=== PATIENT | male | born 1990 | race Caucasian/White ===

== ENCOUNTER 2025-02-21 17:51 | Emergency (ER) | payer OTHER ==
[~2025-02-21] VITALS: Ht 190.5 cm; Wt 109.1 kg
[2025-02-21 19:23] VITALS: BP 126/78; PULSE 73; RESP 16; TEMP 98.1; O2SAT 100
[2025-02-21] MEDS: IBUPROFEN 600 MG TABLET PO ONE (22:39)
== END 2025-02-21 23:12 | disposition home or self-care (01) ==
LOC: EMS 17:51
DX: S62.324A Displaced fracture of shaft of fourth metacarpal bone, right hand, initial encounter for closed fracture (principal); S62.326A Displaced fracture of shaft of fifth metacarpal bone, right hand, initial encounter for closed fracture; S09.90XA Unspecified injury of head, initial encounter; F15.90 Other stimulant use, unspecified, uncomplicated; Z98.890 Other specified postprocedural states; W22.8XXA Striking against or struck by other objects, initial encounter; Y93.89 Activity, other specified; Y92.89 Other specified places as the place of occurrence of the external cause; Y99.8 Other external cause status
CPT/HCPCS: 70450; 99284